=== PATIENT | male | born 1990 | race Caucasian/White ===

== ENCOUNTER 2023-09-03 22:55 | Emergency (ER) | payer BC, SELFPAY ==
[2023-09-03 23:01] VITALS: BP 164/112
--- NOTE | 2023-09-04 00:29 | ED.MUSCINJ ---
HPI-Injury
General
Chief Complaint: Musculo-Skeletal Complaint
Source: patient and significant other
Exam Limitations: none
Time Seen by Provider: 09/03/23 23:24
Nursing documentation reviewed up to this point in time: agreed with
Travel History
Have you had any contact with someone who has COVID-19?: No
Do you have any symptoms of coronavirus? Fever > 100 degrees, chills, cough, shortness of breath, sore throat, loss of taste or smell, muscle aches, or headache?: No
History of Present Illness-Injury
Is this injury a work related problem?: No
Is pt an associate of [facility]?: No
Initial Injury comments:
33-year-old male presents emergency department after dropping a 25 pound weight on his left first and second toe. Significant other placed a gauze wrap. He denies other injury.
Past History
Past History
ED Past Medical History: None
ED Past Surgical History: Tonsilectomy
Social History
Tobacco: Non-smoker
Alcohol: None
Drug: None
Living: with family
Employment: Employed
Review of Systems
Review of Systems
Allergies reviewed?: Yes
All Other Systems: ROS reviewed and negative except as documented in HPI and ROS
Skin: Reports other (Laceration left first and second toes)
Skin Exam
Laceration
Left First Toe:
Length in cm: 3
Orientation: vertical
Type of Laceration: complex
Any active bleeding?: low grade venous oozing
Distal skin color and temperature: normal-warm & good color
Normal distal neurovascular exam: Yes
Range of motion: limited
Second Toe:
Length in cm: 1.5
Orientation: horizontal
Type of Laceration: simple
Any active bleeding?: low grade venous oozing
Distal skin color and temperature: normal-warm & good color
Normal distal neurovascular exam: Yes
Range of motion: limited
Avulsion
Left First Toe:
Type of avulsion injury: avulsion (Toenail avulsion left first and second toe)
Any active bleeding?: low grade venous oozing
Distal skin color and temperature: normal-warm & good color
Normal distal neurovascular exam: Yes
Phy Exam
Physical Exam
Physical Exam:
bleeding from left 1st and 2nd toe laceration, controlled
Injury Course
Orders/Labs/Results
Orders:
Orders
09/04/23 00:26
CR Toe(s) Min 2 Vw Left Urgent
Comment: 1st and second
Reason For Exam: crush injury left 1st and 2nd toe
Indicate Which Toe:: Great
09/04/23 00:43
Tetanus/Diphth/Acelpertussis [Adacel] 0.5 ml IM .ONCE ONE
09/04/23 01:05
Cast Shoe Left-Treatment ONCE
Cephalexin Monohydrate [Keflex] 500 mg PO NOW STA
Procedures
Laceration Closure
Left First Toe:
Status of Wound: clean
Size of Wound in cm: 3
Description of Wound Edges: ragged and macerated
Preparation: cleaned with saline
Anesthesia: Digital-Regional
Revision/Debridement: routine- no revision
Wound exploration: explored to base- no FB
Type of Closure: single layer closure and other (Repaired nailbed avulsion)
Skin Closure Material: 4-0 vicryl
Number of sutures: 3
Left Second Toe:
Status of Wound: clean
Size of Wound in cm: 1.5
Description of Wound Edges: sharp and macerated
Anesthesia: Digital-Regional
Revision/Debridement: routine- no revision
Wound exploration: explored to base- no FB
Type of Closure: single layer closure (Nailbed avulsion repaired)
Skin Closure Material: 4-0 vicryl
Number of sutures: 2
MDM/Problems Addressed
Differential Diagnosis Includes:
Open fracture, toenail avulsion, toenail laceration
MDM/Problems Addressed:
33-year-old male with left first and second toenail avulsion and lacerations, open avulsion fracture of left first distal toe. Keflex given, postop shoe given. Repaired toenail avulsions and lacerations.
*Radiology
Radiology exam reviewed: preliminary read by ED provider (Left foot x-ray shows comminuted fracture left first distal phalanx)
*Pulse Oximetry
Patient hypoxic: no
*EKG
Interpreted by ED Provider?: NA
*Casing Mixer Interpretation
Rate: Casing Mixer- N/A
*Critical Care Note
Total Time (30-74mins, 75-104mins- exclusive of procedures): Not Applicable
Patient Management
Social determinants of health affecting care: Living situation and Strong social support
Escalation/DeEscalation of care consider admission/obs:
Admit not indicated
ED Attending Note
-
Portions of this chart may have been created with voice recognition software.� Occasional wrong word or��sound alike� substitutions may have occurred due to the inherent limitations of voice recognition software.
Discharge Plan
Departure
Patient Disposition: Home (Routine Discharge)
Date of Disposition: 09/04/23
Time of Disposition: 01:08
Patient with high blood pressure during this ER visit?: Yes
Condition: Good
Discharge Problem:
Laceration of toe of left foot with damage to nail, Open fracture of left great toe
Instructions: Nail Avulsion (DC), Toe Fracture ED, BLOOD PRESSURE
Prescriptions:
New
cephalexin 500 mg capsule
500 mg PO Q8H 7 Days Qty: 21 0RF
Referrals:
NONE,* [Family Provider] -
Claire Kenyon DPM [Active] - Call in 1-3 days for appt
Interventions
Interventions:
*Risk Screen - Suicide Last Done: 09/03/23 23:03
*General Assessment Last Done: 09/03/23 23:38
*Neglect/Abuse Screening Last Done: 09/03/23 23:01
*ED COVID-19 Vaccine History Last Done: 09/03/23 23:38
ED-Musculoskeletal Assessment Last Done: 09/03/23 23:38
ED-Skin Assessment Last Done: 09/03/23 23:38
[2023-09-04] MEDS: ADACEL 0.5 ML IM (00:58)
[2023-09-04] MEDS: KEFLEX 500 MG PO (01:18)
[2023-09-04 01:25] VITALS: BP 141/79
[2023-09-04 01:27] VITALS: BP 141/79
== END 2023-09-04 01:28 | disposition home or self-care (01) ==
LOC: EMR 22:55
PROVIDERS: EMERGENCY PHYSICIAN Emergency Medicine
DX: S92.402B Displaced unspecified fracture of left great toe, initial encounter for open fracture (principal); W22.8XXA Striking against or struck by other objects, initial encounter; R03.0 Elevated blood-pressure reading, without diagnosis of hypertension; Z23 Encounter for immunization
CPT/HCPCS: 99284; 90471; 12002; 73660; 90715

== ENCOUNTER → 2023-09-21 13:58 | Outpatient (REF) | payer BC, SELFPAY | LOC: HWRAD 13:58 | PROVIDERS: ATTENDING PHYSICIAN Podiatrist Foot & Ankle Surgery | DX: S92.911A Unspecified fracture of right toe(s), initial encounter for closed fracture (principal) | CPT/HCPCS: 73630 ==

== ENCOUNTER → 2023-10-29 12:08 | Outpatient (REF) | payer BC, SELFPAY | LOC: HWRAD 12:08 | PROVIDERS: ATTENDING PHYSICIAN Podiatrist Foot & Ankle Surgery | DX: S92.911D Unspecified fracture of right toe(s), subsequent encounter for fracture with routine healing (principal) | CPT/HCPCS: 73630 ==

== ENCOUNTER → 2023-11-27 13:14 | Outpatient (REF) | payer BC, SELFPAY | LOC: HWRAD 13:14 | PROVIDERS: ATTENDING PHYSICIAN Podiatrist Foot & Ankle Surgery | DX: S92.422D Displaced fracture of distal phalanx of left great toe, subsequent encounter for fracture with routine healing (principal) | CPT/HCPCS: 73630 ==